=== PATIENT | female | born 1985 | race Caucasian/White ===

== ENCOUNTER 2021-07-04 19:48 | Emergency (ER) | payer BC, MEDICAID ==
[~2021-07-04] VITALS: Ht 157.5 cm; Wt 61.2 kg
--- NOTE | 2021-07-04 20:29 | NUR ---
Pt here for neck stiffness, nausea and vomiting for past three days. Pt. had covid 3 weeks ago. Denies cough, fever, vision changes, headache. VSS. Addendum: 07/04/21 at 2032 by LUIS Pt here for neck stiffness, headache, nausea and vomiting for past three days. Pt. had covid 3 weeks ago. Denies cough, fever, vision changes. VSS.
--- NOTE | 2021-07-04 20:37 | NUR ---
Dr. Carlin at bedside for mse.
[2021-07-04] MEDS ORDERED: IV NS 1000 ML 1,000 ML IV ONE (20:45)
[2021-07-04] MEDS ORDERED: METOCLOPRAMIDE HCL 10 MG/2 ML VIAL IV ONE (20:45)
[2021-07-04] MEDS ORDERED: KETOROLAC TROMETHAMINE 30 MG INJ IVP ONE (20:45)
[2021-07-04] MEDS ORDERED: diphenhydrAMINE 50 MG/1 ML VIAL IV ONE (20:45)
[2021-07-04] MEDS ORDERED: METOCLOPRAMIDE HCL 10 MG/2 ML VIAL ONE (20:58)
[2021-07-04] MEDS ORDERED: diphenhydrAMINE 50 MG/1 ML VIAL ONE (20:58)
[2021-07-04] MEDS ORDERED: SUMA100T16 PO (21:22)
[2021-07-04] MEDS ORDERED: PROC10TA29 PO (21:22)
[2021-07-04] MEDS ORDERED: NAPR-1164 PO (21:22)
[2021-07-04 21:31] LABS: *URINE HCG, QUAL NEGATIVE (NEGATIVE)
[2021-07-04] MEDS ORDERED: KETOROLAC TROMETHAMINE 30 MG INJ ONE (21:49)
[2021-07-04 22:30] VITALS: BP 117/70
--- NOTE | 2021-07-04 22:30 | NUR ---
Patient discharged to home in stable condition.NAD. VSS. Pt. feels better. Walks with steady gait. All belongings taken. Written and verbal after care instructions given. Patient verbalizes understanding of instructions. Stressed follow up or return to ER for worsening s/s.
== END 2021-07-04 22:31 | disposition home or self-care (01) ==
LOC: ER 19:51
DX: G43.909 Migraine, unspecified, not intractable, without status migrainosus (principal); Z86.16 Personal history of COVID-19
CPT/HCPCS: 84703; 96361; 96374; 96375; 99284; J1200; J1885; J2765; A4663; J7030

== ENCOUNTER 2024-02-28 09:04 | Emergency (ER) | payer OTHER ==
[~2024-02-28] VITALS: Ht 157.5 cm; Wt 65.8 kg
[~2024-02-28 09:04] MED LIST: DOXY100C5 PO; HYDR-4697 TP; NAPR-1164 PO; PROC10TA29 PO; SUMA100T16 PO
[2024-02-28 09:20] LABS: *BILIRUBIN,URIN NEGATIVE (NEGATIVE); *BLOOD, URINE NEGATIVE (NEGATIVE); *CLARITY,URINE CLEAR (CLEAR); *COLOR,URINE YELLOW (YELLOW); *KETONES,URINE NEGATIVE (NEGATIVE); *PROTEIN,URINE NEGATIVE (NEGATIVE); *UROBILINOGEN,URINE 0.2 E.U./dl (NORMAL); LEUKOCYTE ESTERASE ,URINE NEGATIVE (NEGATIVE); NITRITE, URINE NEGATIVE (NEGATIVE); UGLUCOSE NEGATIVE (NEGATIVE)
[2024-02-28 09:43] LABS: *URINE HCG, QUAL NEGATIVE (NEGATIVE)
[2024-02-28] MEDS: IV NORMAL SALINE 1000 ML BAG IV ONE (09:51)
[2024-02-28 09:52] LABS: BASOPHILS % (AUTO) 0.3 % (0.0-2.0); EOSINOPHILS # (AUTO) 0.1 K/uL (0.0-0.7); EOSINOPHILS % (AUTO) 1.6 % (0.0-7.0); HEMATOCRIT 39.6 % (31.2-41.9); HEMOGLOBIN 13.5 g/dL (10.9-14.3); LYMPHOCYTES # (AUTO) 3.3 K/uL (0.8-4.8); LYMPHOCYTES % (AUTO) 34.3 % (20.5-51.5); MEAN CORPUSCULAR HEMOGLOBIN 27.8 uug (24.7-32.8); MEAN CORPUSCULAR HGB CONC 34 g/dL (32.3-35.6); MEAN CORPUSCULAR VOLUME 81.6 fL (75.5-95.3); MONOCYTES # (AUTO) 0.5 K/uL (0.1-1.30); MONOCYTES % (AUTO) 5.1 % (0.0-11.0); NEUTROPHILS # (AUTO) 5.6 K/uL (1.8-8.9); NEUTROPHILS % (AUTO) 58.7 % (38.5-71.5); PLATELET COUNT (AUTO) 371 K/uL (179-408); RED BLOOD CELL COUNT(AUTO) 4.86 MIL/uL (3.63-4.92); RED CELL DISTRIBUTION WIDTH 13.6 % (12.3-17.7); WHITE BLOOD COUNT (AUTO) 9.5 K/uL (3.8-11.8)
[2024-02-28] MEDS ORDERED: KETOROLAC TROMETHAMINE 15 MG INJ ONE (09:54)
[2024-02-28] MEDS: KETOROLAC TROMETHAMINE 15 MG INJ IVP ONE (09:56)
[2024-02-28 10:11] LABS: DIFFERENTIAL COMMENT 1
[2024-02-28 10:26] LABS: ALANINE AMINOTRANSFERASE 43 U/L (14-59); ALBUMIN 3.9 g/dL (3.4-5.0); ALKALINE PHOSPHATASE 91 U/L (50-136); ASPARTATE AMINOTRANSFERASE 35 U/L (15-37); BILIRUBIN,TOTAL 0.3 mg/dL (0.2-1.0); CALCIUM 8.9 mg/dL (8.5-10.1); CARBON DIOXIDE 24 mmol/L (21-32); CHLORIDE 103 mmol/L (98-107); CREATININE 0.7 mg/dL (0.6-1.3); GLUCOSE 95 mg/dL (74-106); LIPASE 50 U/L (16-77); POTASSIUM 3.9 mmol/L (3.5-5.1); SODIUM SERUM 140 mmol/L (136-145); TOTAL PROTEIN, SERUM 8.1 g/dL (6.4-8.2); UREA NITROGEN, BLOOD 9 mg/dL (7-18)
[2024-02-28 10:34] LABS: BILIRUBIN,DIRECT < 0.1 mg/dL (0.0-0.2)
[2024-02-28] MEDS ORDERED: PHEN-704 PO (11:04)
[2024-02-28] MEDS ORDERED: IBUP-1955 PO (11:04)
[2024-02-28 11:27] VITALS: BP 115/68; TEMP 208.2; O2SAT 99
== END 2024-02-28 11:28 | disposition home or self-care (01) ==
LOC: ER 09:04
DX: R14.0 Abdominal distension (gaseous) (principal); R35.0 Frequency of micturition; R10.2 Pelvic and perineal pain; F17.200 Nicotine dependence, unspecified, uncomplicated; Z79.899 Other long term (current) drug therapy
CPT/HCPCS: 99283; 96374; 96361; 80076; 80048; 81003; 84703; 83690; 85025; 36415; J1885; J7040; A4606; A4663